=== PATIENT | male | born 1980 | race Caucasian/White ===

== ENCOUNTER 2019-10-12 12:36 | Day surgery (SDC) | payer OTHER ==
[~2019-10-12] VITALS: Ht 182.9 cm; Wt 114.1 kg
[2019-10-12 13:12] LABS: HEMATOCRIT 47.1 % (42.0-54.0); HEMOGLOBIN 15.2 g/dL (13.5-17.5); MCH 29.9 pg (26.0-34.0); MCHC 32.3 g/dL (31.0-37.0); MCV 92.7 fL (80.0-100.0); MEAN PLATELET VOLUME 10.2 fL (7.4-10.4); RBC 5.08 10x6/uL (4.20-6.10); RDW 12.9 % (11.5-14.5); WBC 11.1 10x3/uL (4.8-10.8)
[2019-10-12] MEDS ORDERED: OMEPRAZOLE40 MG PO (13:31)
[2019-10-12] MEDS ORDERED: SINEQUAN50 MG PO (13:31)
[2019-10-12] MEDS ORDERED: PROZAC20 MG PO (13:31)
[2019-10-12] MEDS ORDERED: LITHIUM CARBON300 MG PO (13:31)
[2019-10-12] MEDS ORDERED: MOBIC7.5 MG PO (13:32)
[2019-10-12] MEDS ORDERED: BUSPAR10 MG PO (13:32)
[2019-10-12] MEDS ORDERED: METHOCARBAMOL750 MG PO (13:32)
[2019-10-12] MEDS ORDERED: COLESTID1 GM PO (13:33)
[2019-10-12] MEDS ORDERED: IMITREX100 MG PO (13:33)
[2019-10-12 13:39] VITALS: BP 125/79; Ht 182.9 cm; Wt 114.1 kg
--- NOTE | 2019-10-12 13:48 | NUR ---
ATTEMPTED TO CALL [employer] TO INFORM OF POSITIVE SUICIDE RISK SCREEN. NO ANSWER. CALLED DIRECTLY TO BEHAVIORAL HEALTH NURSE. NURSE IS AWARE. IS IN ER AND WILL COME BY TO EVALUATE PT.
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
--- NOTE | 2019-10-13 07:39 | OP ---
PATIENT NAME: LEIF PARRY MEDICAL RECORD: [id number] :76 LOCATION:D.[facility] ADMISSION DATE: SURGEON: JER HARRISON DO DATE OF OPERATION: 10/12/2019 PROCEDURE: Colonoscopy with polypectomy and biopsies. INDICATIONS FOR PROCEDURE: Family history positive for colon cancer in the patient's brother, diarrhea, blood in stool, nausea, generalized abdominal tenderness. SCOPE: Olympus video pediatric colonoscope. MEDICATIONS: Propofol 620 mg IV per anesthesia. WITHDRAWAL TIME: 13 minutes. ESTIMATED BLOOD LOSS: Minimal. COMPLICATIONS: None. FINDINGS AND DESCRIPTION OF PROCEDURE: Informed consent was given. The patient was made comfortable with the above medication. After reaching an adequate level of sedation by slow IV push, the patient was placed on his left side. A digital rectal examination was performed and was normal. The endoscope was then advanced under direct visualization through the rectum to the cecum and terminal ileum. The endoscope was slowly withdrawn and mucosa was carefully examined. The prep quality was good. In the terminal ileum, there were some erythema and granularity and a few scattered punctate ulcerations. Cold forceps biopsies were taken of the site. In the colon, there were 2 separate polyps that were visualized. First was located in the descending colon. It was a benign appearing sessile polyp, which measured approximately 5-mm in diameter. It was removed using hot snare. In the transverse colon, there was a benign appearing sessile polyp, which measured approximately 3-4 mm in diameter. It was removed using hot forceps. There was evidence of mild diverticulosis involving the descending and sigmoid colon. Retroflexion was performed in the rectum with visualization of grade II internal hemorrhoids without bleeding. Random biopsies were taken during the procedure to submit for histopathology and to rule out microscopic colitis regarding the patient's diarrhea symptoms. The endoscope was withdrawn from the patient. The patient tolerated the procedure well and there were no complications. IMPRESSION: 1. Terminal ileitis, status post biopsies. 2. Two polyps as described above, removed using a combination of a hot snare and hot forceps. 3. Mild diverticulosis of the descending and sigmoid colon. 4. Grade II internal hemorrhoids without bleeding. PLAN AND RECOMMENDATIONS: 1. Discharge home when recovery parameters are met. 2. Follow up biopsy specimen results. 3. High fiber diet. 4. Consider supplementing diet with 1 tablespoon of fiber daily. 5. Continue current medications. OPERATIVE REPORT [id number] LEIF PARRY 6. Follow up in GI clinic in 3-4 weeks. Ancillary testing regarding the constellation of digestive symptoms have been ordered. We will follow up after all testing has been done to determine further recommendations including medications and further testing as indicated. TRANSINT:[id number] Voice Confirmation ID: [id number] DOCUMENT ID: [id number] JER HARRISON DO at 0739 CC: [id number] DICTATION DATE: 10/12/19 1521 EDGE STAINER MACHINE: 10/13/19 0028 [facility] 10/12/19 [place] [id number]
== END 2019-10-12 16:04 | disposition home or self-care (01) ==
LOC: D.OPS 12:36
PROVIDERS: Anesthesiology; ATTEND Internal Medicine Gastroenterology
DX: R19.7 Diarrhea, unspecified (principal); K92.1 Melena; R11.0 Nausea; R10.84 Generalized abdominal pain; Z80.0 Family history of malignant neoplasm of digestive organs; K63.5 Polyp of colon

== ENCOUNTER → 2019-10-22 10:13 | Outpatient (CLI) | payer OTHER ==
[2019-10-12 13:39] VITALS: BMI 34.1
[~2019-10-22 10:13] MED LIST: BUSPAR10 MG PO; COLESTID1 GM PO; IMITREX100 MG PO; LITHIUM CARBON300 MG PO; METHOCARBAMOL750 MG PO; MOBIC7.5 MG PO; OMEPRAZOLE40 MG PO; PROZAC20 MG PO; SINEQUAN50 MG PO
== END | disposition home or self-care (01) ==
LOC: D.US 09:00
PROVIDERS: ATTEND Internal Medicine Gastroenterology
DX: R11.2 Nausea with vomiting, unspecified (principal); R10.9 Unspecified abdominal pain

== ENCOUNTER 2019-12-10 06:03 | Day surgery (SDC) | payer OTHER ==
[~2019-12-10] VITALS: Ht 182.9 cm; Wt 112.0 kg
[2019-12-10 06:40] LABS: ANION GAP 8.2 mmol/L (8-16); CALCIUM 9.2 mg/dL (8.5-10.1); CARBON DIOXIDE 30.6 mmol/L (21.0-32.0); CREATININE - SERUM 1.2 mg/dL (0.6-1.3); POTASSIUM - SERUM 4.8 mmol/L (3.5-5.1)
[2019-12-10 07:11] LABS: HEMATOCRIT 46.1 % (42.0-54.0); LYMPHOCYTES 26.9 % (15-50); MCH 29.8 pg (26.0-34.0); MCHC 32.5 g/dL (31.0-37.0); MCV 91.7 fL (80.0-100.0); NEUTROPHILS 63.4 % (40-80); PLATELET COUNT 277 10x3/uL (130-400); RBC 5.03 10x6/uL (4.20-6.10); RDW 12.6 % (11.5-14.5)
[2019-12-10 07:38] VITALS: BP 121/74; Ht 182.9 cm; Wt 112.0 kg
--- NOTE | 2019-12-10 08:01 | NUR ---
POSITIVE FOR SUICIDE SCREENING LIFETIME QUESTION, DECLINES FURTHER EVALUATION. SEES A PHYCHIATRIST AND IS MEDICATED.
[2019-12-10] MEDS ORDERED: HYDROCODON-ACE1 EA10 PO (09:54)
--- NOTE | 2019-12-10 11:18 | NUR ---
1100 MEDICATED FOR PAIN. SITZ BATH BRADLEY GIVEN TO PATIENT WITH INSTRUCTIONS
--- NOTE | 2019-12-10 13:54 | NUR ---
1100 MEDICATED FOR PAIN 1220 VOIDED X1 1230 IV REMOVED AND INSTRUCTIONS GIVEN.
--- NOTE | 2019-12-12 10:50 | OP ---
PATIENT NAME: LEIF PARRY MEDICAL RECORD: [id number] :76 LOCATION:D[facility] ADMISSION DATE: SURGEON: BILL RAY MD DATE OF OPERATION: 12/10/2019 PREOPERATIVE DIAGNOSES: 1. Internal hemorrhoids with bleeding. 2. Anal condyloma. POSTOPERATIVE DIAGNOSES: 1. Internal hemorrhoids with bleeding. 2. Anal condyloma. PROCEDURE: 1. Hemorrhoid banding times 3. 2. Excision of multiple anal condyloma. SURGEON: Bill Ray MD REPORT OF PROCEDURE: The patient's perineal region was prepped and draped in sterile fashion. A [place] anoscope was inserted and a 360 degree inspection was performed. I saw no evidence of any fissures or fistulas, but the patient did have mixed internal and external hemorrhoids with the internal component being very friable in all 3 columns. Hemorrhoid bands were placed on all 3 columns with ease with good collection of tissue present at each one. There was some bleeding just from the manipulation of these internal hemorrhoids. At the conclusion of this, the multiple anal condylomas were excised using sharp dissection and then any bleeding from the subcutaneous tissue was treated with electrocautery. COMPLICATIONS: None. CONDITION: Stable. ANESTHESIA: General endotracheal. BLOOD LOSS: 30 mL. TRANSINT:[id number] Voice Confirmation ID: [id number] DOCUMENT ID: [id number] BILL RAY MD at 1050 CC: OSWALDO WEBB MD [id number] DICTATION DATE: 12/10/19 0957 EMBOSSING TOOLSETTER: 12/10/19 1721 [facility] 12/10/19 [place] [id number]
== END 2019-12-10 12:40 | disposition home or self-care (01) ==
LOC: D.OPS 06:03 → D.PAN 08:15 → D.OPS 08:45 → D.PAN 08:45 → D.OPS 12:40
PROVIDERS: ATTEND Surgery
DX: K64.8 Other hemorrhoids (principal); A63.0 Anogenital (venereal) warts